=== PATIENT | female | born 1980 | race Caucasian/White ===

== ENCOUNTER 2017-01-28 05:07 | Day surgery (SDC) | payer OTHER ==
[2017-01-24 15:37] VITALS: BMI 35.7
[~2017-01-28 05:07] MED LIST: ceFAZolin SODIUM 1 GM VIAL IVPB ONE
[2017-01-28] MEDS ORDERED: SUCCINYLCHOLINE CHLORIDE 200 MG/10 ML VIAL ONE (07:14)
[2017-01-28] MEDS ORDERED: ROCURONIUM BROMIDE 50 MG/5 ML VIAL ONE (07:14)
[2017-01-28] MEDS ORDERED: PROPOFOL 20 ML ONE ×3 (07:14→08:54)
[2017-01-28] MEDS ORDERED: DEXAMETHASONE SOD PHOSPHATE 4 MG/1 ML VIAL ONE (07:16)
[2017-01-28] MEDS ORDERED: MIDAZOLAM HCL 2 MG/2 ML SINGLE DOSE VIAL ONE ×3 (07:16→07:17)
[2017-01-28] MEDS ORDERED: LIDOCAINE HCL/PF 2% SDV 5ML VIAL ONE (07:16)
[2017-01-28] MEDS ORDERED: EPINEPHrine/PF 1 MG/1 ML (1:1,000) AMPULE ONE (07:17)
[2017-01-28] MEDS ORDERED: GLYCOPYRROLATE 0.2 MG/1 ML VIAL ONE (08:52)
[2017-01-28] MEDS ORDERED: DESFLURANE GAS 240 ML BOTTLE IH ONE (08:53)
[2017-01-28] MEDS ORDERED: NEOSTIGMINE METHYLSULFATE 0.5 MG/ML - 10 ML MDV ONE (08:56)
--- NOTE | 2017-01-28 09:29 | OP ---
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 Post-Operative Diagnosis: Same as Pre-op Surgeon: Jose Fang Anesthesiologist/POT WASHER: Chema Morales Anesthesia: General Specimens Removed: RLL tumor (endobronchial) Estimated Blood Loss (mls): 10 Operative Report Dictated: Yes
[2017-01-28] MEDS ORDERED: ACETAMINOPHEN INJECTION 100 ML IVPB ONE (09:37)
[2017-01-28] MEDS ORDERED: ONDANSETRON 4 MG/2 ML VIAL IVPUSH PRN (09:39)
[2017-01-28] MEDS ORDERED: ACETAMINOPHEN 1000 MG/100 ML VIAL (NON FORMULARY) IVPB PRN (09:39)
[2017-01-28] MEDS ORDERED: PROMETHAZINE HCL 25 MG/1 ML VIAL IVPUSH PRN (09:39)
[2017-01-28] MEDS ORDERED: oxyCODONE HCL 5 MG TABLET PO PRN (09:39)
[2017-01-28] MEDS ORDERED: LACTATED RINGERS SOLUTION 1,000 ML IV SCH (09:45)
[2017-01-28] MEDS ORDERED: IBUPROFEN 800 MG/8 ML IJ IVPB ONE (09:52)
[2017-01-28 10:22] VITALS: TEMP 98.6
[2017-01-28 13:19] VITALS: BP 135/87; PULSE 83
--- NOTE | 2017-01-28 18:24 | OP ---
- Note: Patient Name: Ignacia Mercedes MR#: [id number] Procedure Date: 01/28/2017 Preoperative Diagnosis: Endobronchial tumor Postoperative Diagnosis: Same Procedure: 1. Bronchoscopy; 2. Bronchial biopsy. Indication: Pneumonia; lung tumor. Surgeon(s): Jose Fang MD Cosurgeon: [employer] Assistant Principal Surgeon: mark Anesthesia: General endotracheal; Findings: tumor at takeoff of right lower lobe; close to middle lobe; frozen non -diagnositc; not occluding right main bronchus intermedius. Specimens Sent: 1. Right lower lobe biopsies. Complications: none Drains / Tubes / Catheters: na Hardware / Implants: na Blood / Fluid Losses: minimal Post-Operative Condition: Hemodynamically stable to PACU. Indications: This patient is a 36 year-old female with a history of 2 right- sided pneumonias and a persistent infiltrate. She was referred from Dr. Munguia for biopsy. We explained the risks, benefits, and alternatives of the procedure and the patient agreed and understood. Details of Procedure: The patient was taken into the operating room and placed supine on the table. She was monitored with pulse oximetry and blood pressure monitoring. She was given sedation and intubated. A bronchoscopy was performed. We saw tumor at the right lower lobe takeoff and biopsied it several times. We sent it to frozen section. The airway was flushed with cold saline and epinephrine and there was no significant bleeding. The patient was then awakened and extubated. She tolerated the procedure well.
--- NOTE | 2017-01-29 16:57 | PATH ---
Cytology Non-Gynecological Report Patient Name: ALYSE THOMAS Med. Rec. #: [id number] /Age/Gender: 1980 (Age: 36) / F Account: [id number] Location: [facility] SURGICAL Taken: 01/28/2017 Received: 01/28/2017 Reported: 01/29/2017 Physicians: Jose Fang M.D. Specimen(s) Received RIGHT LOWER LOBE BRONCHIAL WASHINGS Clinical History None given Final Diagnosis LUNG, RIGHT LOWER LOBE, BRONCHIAL WASHING: SATISFACTORY FOR EVALUATION. BENIGN (NO MALIGNANT CELLS IDENTIFIED). BENIGN RESPIRATORY EPITHELIAL CELLS AND ALVEOLAR MACROPHAGES PRESENT. Comment: Also see [id number]. Electronically Signed Kostas Hollingsworth M.D. Gross Description Approximately 50 cc of bloody fluid received fixed in 50% alcohol. One cytofunnel and one cellblock prepared.
--- NOTE | 2017-01-29 17:00 | PATH ---
Surgical Pathology Report Patient Name: ALYSE THOMAS Med. Rec. #: [id number] /Age/Gender: 1980 (Age: 36) / F Account: [id number] Location: [facility] SURGICAL Taken: 01/28/2017 Received: 01/28/2017 Reported: 01/29/2017 Physicians: Jose Fang M.D. Specimen(s) Received A: RIGHT LOWER LOBE LUNG BIOPSY B: RIGHT LOWER LOBE ENDOBRONCHIAL LUNG BIOPSY Clinical History Right lower lobe tumor Intraoperative Consult Diagnosis Right lower lobe biopsy, touch prep: Lesional material present. Conner Hollingsworth M.D., January 28, 2017 Final Diagnosis A. 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 B. 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 Comment: Sections reveal a proliferation of neoplastic cells beneath the benign surface epithelium. There is a low mitotic rate (less than 2 mitoses per 10 high power herbert) and no areas of necrosis are identified. Immunohistochemical stains performed and interpreted at [facility] show the following results: The neoplastic cells stain with AE1/3, CK7, synaptophysin, and chromogranin. The neoplastic cells do not stain with CK20 or TTF-1. The histologic and immunophenotypic findings are consistent with carcinoid tumor (WHO classification). This case was discussed with Dr. Fang on January 29, 2017. Electronically Signed Kostas Hollingsworth M.D. Gross Description A. Received fresh for intraoperative consultation labeled "right lower lobe biopsy" is a 0.3 cm greatest dimension piece of wright tissue. Touch preps are prepared. The specimen is totally submitted in one cassette. B. Received in formalin, labeled "right lower lobe endobronchial lung biopsy" is a wright, irregular portion of soft tissue measuring 0.6 cm. in greatest dimension. The specimen is submitted in toto in one cassette. [facility]/01/28/2017 [facility]/01/28/2017
== END 2017-01-28 13:19 | disposition home or self-care (01) ==
LOC: JASU-SURG 05:07
PROVIDERS: ATTEND Surgery
PROC: 0BBF8ZX Excision of Right Lower Lung Lobe, Via Natural or Artificial Opening Endoscopic, Diagnostic (ICD-10-PCS; 2017-01-28)
PROC: 0BBF8ZX Excision of Right Lower Lung Lobe, Via Natural or Artificial Opening Endoscopic, Diagnostic (ICD-10-PCS; principal; 2017-01-28 07:30)
DX: D38.1 Neoplasm of uncertain behavior of trachea, bronchus and lung (principal)
CPT/HCPCS: 71010-TC; 84703; 86850; 86900; 86901; 87070; 87102; 87116; 87205; 87206; 87210; 88108; 88305-TC; 88333; 88341-TC; 88342-TC; 94760

== ENCOUNTER 2018-04-07 17:10 | Inpatient (IN) | payer OTHER ==
[~2018-04-07 17:10] MED LIST changes: +DINOPROSTONE 10 MG VAGINAL SUPPOSITORY VG ONE; -ceFAZolin SODIUM 1 GM VIAL IVPB ONE
[2018-04-07 18:15] VITALS: BMI 38.2
[2018-04-07] MEDS ORDERED: TUBERCULIN PPD 5 TU/0.1ML SYRINGE (IN PATIENT USE ONLY) ID ONE (18:15)
[2018-04-07 19:01] LABS: BASO % 0.3 % (0-2.0); EOS % 1.4 % (0-4.5); HEMATOCRIT 30.6 % (32.4-45.2); HEMOGLOBIN 10.2 GM/dL (10.7-15.3); LYMPH % 14.6 % (8-40); MCH 26.5 pg (25.7-33.7); MCHC 33.5 g/dl (32.0-36.0); MEAN PLT VOLUME 6.8 fl (7.5-11.1); NEUT % 76.7 % (42.8-82.8); PLATELET COUNT 292 K/MM3 (134-434); RBC 3.87 M/mm3 (3.60-5.2); WHITE BLOOD COUNT 7.5 K/mm3 (4.0-10.0)
[2018-04-07 19:12] LABS: INR 1.04 (0.82-1.09); PROTHROMBIN TIME (PATIENT) 11.7 SEC (9.7-13.0)
[2018-04-07 19:14] LABS: ACTIVATED PTT 25.1 SECONDS (25.2-36.5)
[2018-04-07 19:23] LABS: ANION GAP 10 (8-16); BLOOD UREA NITROGEN 12 mg/dL (7-18); CALCIUM 8.4 mg/dL (8.5-10.1); CHLORIDE 109 mmol/L (98-107); CO2 23 mmol/L (21-32); CREATININE 0.5 mg/dL (0.55-1.02); GLUCOSE,RANDOM 72 mg/dL (74-106); POTASSIUM 3.8 mmol/L (3.5-5.1); SODIUM 142 mmol/L (136-145)
--- NOTE | 2018-04-07 23:00 | HP ---
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: Alzheimer's, CVA, Dementia, Migraine, Multiple Sclerosis, Peripheral Neuropathy, Parkinson's, Seizure, Syncope, TIA, Vertigo, Other Cardiovascular: No: AFIB, Aneurysm, Aortic Insufficiency, Aortic Stenosis, CAD, CHF, Deep Vein Thrombosis, HTN, Hyperlipdemia, PR, Mitral Insufficiency, Mitral Stenosis, Murmur, Pulmonary Hypertension, Other Pulmonary: Yes: Other (Lobectomy Rt lung for benign tumor) Gastrointestinal: No: Ascites, Cancer, Constipation, Crohn's Disease, Diverticulitis, Diverticulosis, Esophageal Varices, Gastritis, GERD, GI Bleed, Hemorrhoids, Hiatal Hernia, Inflamatory Bowel Disease, Irritable Bowel Disease, Pancreatitis, Peptic Ulcer Disease, Ulcerative Colitis, Other Hepatobiliary: No: Cirrhosis, Cholelithiasis, Cholecystitis, Choledocholithiasis , Hepatitis A, Hepatitis B, Hepatitis C, Other Renal/: No: Renal Failure, Renal Inusuff, BPH, Cancer, Hematuria, Hemodialysis , Neurogenic Bladder, Renal Calculi, UTI, Other Reproductive: No: Ectopic , Endometriosis, Fibroids, PID, Polycystic Ovary Syndrome, Postmenopausal, Other ...: 2 ...Para: 0 ...Term: 0 ...: 0 ...Spon : 1 ...Induced : 0 ...Multiple Gestation: 0 ...LMP: 06/10/17 ... Weeks Gestation by Dates: 40.2 ...EDC by Dates: 03/17/17 ...EDC by Sono: 04/05/18 Heme/Onc: Yes: Anemia Infectious Disease: No: AIDS, C-Diff, Herpes Zoster, HIV, MRSA, STD's, Tuberculosis, VREF, Other Psych: No: Addictions, Anxiety, Bipolar, Depression, Panic, Psychosis, Schizophrenia, Other Musculoskeletal: No: Bursitis, Chronic low back pain, Hemiparesis, Hemiplegia, Osteoarthritis, Paraplegia, Other Rheumatology: No: Fibromyalgia, Gout, Lupus, Rheumatoid Arthritis, Sarcoidosis, Vasculitis, Other ENT: No: Allergic Rhinitis, Sinusitis, Other Endocrine: No: Roscoe's Disease, Ana's Disease, Diabetes Insipidus, Diabetes Mellitus, Hyperparathyroidism, Hyperthyroidism, Hypothyroidism, Osteopenia, SIADH, Other Dermatology: No: Basal Cell, Cellulitis, Eczema, Melanoma, Psoriasis, Squamous Cell, Other - Past Surgical History Hx Myomectomy: No Hx Transabdominal Cerclage: No Additional Surgical History: Rt lung lobectomy= benign 04/10/2018 - Smoking History Smoking history: Never smoked Have you smoked in the past 12 months: No Aproximately how many cigarettes per day: 0 - Alcohol/Substance Use Hx Alcohol Use: No History of Substance Use: reports: None - Social History Usual Living Arrangement: Yes: With Spouse ADL: Independent History of Recent Travel: No Home Medications - Allergies Allergies/Adverse Reactions: Allergies Allergy/AdvReac Type Severity Reaction Status Date / Time No Known Allergies Allergy Verified 04/07/18 17:56 - Home Medications Home Medications: Ambulatory Orders Insulin Detemir [Levemir Flextouch] 140 units SQ HS 04/07/18 Vitamins (Sjr) - 1 tab PO DAILY 04/07/18 Family Disease History - Family Disease History Family Disease History: CA: Father (bladder ca), Mother (ovarian ca) Review of Systems - Review of Systems Constitutional: reports: No Symptoms Eyes: reports: No Symptoms HENT: reports: No Symptoms Neck: reports: No Symptoms Cardiovascular: reports: No Symptoms Respiratory: reports: No Symptoms Gastrointestinal: reports: No Symptoms Genitourinary: reports: No Symptoms Breasts: reports: No Symptoms Reported Musculoskeletal: reports: No Symptoms Integumentary: reports: No Symptoms Neurological: reports: No Symptoms Endocrine: reports: No Symptoms Hematology/Lymphatic: reports: No Symptoms Psychiatric: reports: No Symptoms Pain Intensity: 0 Physical Exam - Maternity Vital Signs: Vital Signs Temperature 99.0 F 04/07/18 17:10 Pulse Rate 87 04/07/18 17:10 Respiratory Rate 19 04/07/18 17:10 Blood Pressure 134/79 04/07/18 17:10 O2 Sat by Pulse Oximetry (%) Constitutional: Yes: No Distress, Calm, Obese Eyes: Yes: WNL, Conjunctiva Clear, EOM Intact HENT: Yes: WNL, Atraumatic, Normocephalic Neck: Yes: WNL, Supple, Trachea Midline Cardiovascular: Yes: WNL, Regular Rate and Rhythm Lungs: Clear to auscultation, Normal air movement Breast(s): Yes: WNL - Abdominal Exam/OB Fundal Height: 42 Number of Fetuses: Single Presentation: Vertex Contractions: No Regularity: Irregular Intensity: Unaware Monitor Mode: External Heart Rate (range): 140 Heart Rate Location: Midline Category: I Accelerations: Uniform Decelerations: None - Vaginal Exam/OB Vaginal Bleediing: No Speculum Exam: No Dilatation (cm): 0 Effacement (%): 0 Amniotic Membrane Status: Intact Presentation: Vertex/Position Station: -4 - Physical Exam Musculoskeletal: Yes: WNL Extremities: Yes: WNL Edema: Yes Edema: LLE: Trace, RLE: Trace Integumentary: Yes: WNL Deep Tendon Reflex Grade: Normal +2 ...Motor Strength: WNL Psychiatric: Yes: WNL, Alert, Oriented - Labs Lab Results: CBC, BMP 04/07/18 18:30 04/07/18 18:30 Hemorrhage Risk Assessment - Risk Factors Medium Risk Factors: Yes: None High Risk Factors: Yes: None Risk Score: 1 Risk Level: Medium Risk Imaging - Results Ultrasound: Report Reviewed Assessment/Plan 37yo P0 with at EGA 40w2d with GDM Class A2 admitted for labor induction. Pt is not in labor. Fetus with Category I tracing. Adequate gynecoid pelvimetry on exam. We had long discussion re: risks, benefits, and alternatives of labor induction. I explained the options of expectant management awaiting spontaneous labor, induction of labor, and elective section. The risks of uterine tachysystole, distress, uterine rupture, need for emergency C/S, hemorrhage, infection, scarring, etc. were discussed. We also discussed the risks of meconium aspiration, shoulder dystocia , and anesthesia options. The pt refused a C/S. The pt requested to proceed with induction of labor. We discussed the alternative methods of induction with Cervidil, Cytotec, Folley ballon, and pitocin. The pt prefers Cervidil followed by pitocin, if needed.
[2018-04-08] MEDS: LACTATED RINGERS SOLUTION 1,000 ML/1,000 ML INFUS.BAG IV SCH (09:30)
[2018-04-08] MEDS ORDERED: OXYTOCIN 30 UNITS in 0.9% NS 30 UNIT/500 ML INFUS.BAG IVPB ONE (09:34)
--- NOTE | 2018-04-08 10:01 | PN ---
Ante-Partal Exam - Subjective Subjective: No complaints. No contractions Vital Signs: Vital Signs Temperature 98.4 F 04/08/18 07:00 Pulse Rate 68 04/08/18 07:00 Respiratory Rate 20 04/08/18 07:00 Blood Pressure 123/66 04/08/18 07:00 O2 Sat by Pulse Oximetry (%) Bleeding: No Headache: No Visual changes: No Right upper quadrant pain: No Pain (scale 1-10): 1 - Contractions Contractions: Yes Regularity: Irritability Intensity: Mild Monitor Mode: External - Exam during Labor Heart Rate: 150 Variability: Moderate Heart Rate Location: Midline Category: I Monitor Accelerations: Present Monitor Decelerations: None Exam: Vaginal Dilatation (cm): 0 Effacement (%): 20 Amniotic Membrane Status: Intact Presentation: Vertex Station: -4 Remarks: Head is unengaged - Intrapartum Hemorrhage Risk Medium Risk Factors: None High Risk Factors: None Risk Score: 0 Risk Level: Low Risk - Assessment/Plan Assessment/Plan: 37yo P0 with at EGA 40w3d admitted for labor induction due to sub- optimally controlled GDM A2, AMA, obesity, post term . Pt is not in labor. Fetus with Category I tracing. The pt requested to continue induction. Pitocin was discussed and started. FSG was 113 fasting. Plan to titrate pitocin and monitor FSG levels. Pt does not need insulin drip.
[2018-04-08] MEDS ORDERED: OXYTOCIN 30 UNITS in 0.9% NS 30 UNIT/500 ML INFUS.BAG IVPB SCH (11:00)
[2018-04-08] MEDS ORDERED: BUTORPHANOL TARTRATE 1 MG/ML VIAL IVPB ONE (17:00)
[2018-04-08] MEDS ORDERED: PROMETHAZINE HCL 25 MG/1 ML VIAL IVPB ONE (17:00)
[2018-04-08] MEDS ORDERED: FENTANYL/BUPIVACAINE/NS/PF - PCEA - 50 ML DISP.SYRIN EP ONE (19:29)
--- NOTE | 2018-04-08 19:54 | PN ---
Ante-Partal Exam - Subjective Subjective: Pt is c/o painful ctx's. SROM prior to exam Vital Signs: Vital Signs Temperature 98.7 F 04/08/18 18:00 Pulse Rate 62 04/08/18 19:00 Respiratory Rate 20 04/08/18 19:00 Blood Pressure 127/70 04/08/18 19:00 O2 Sat by Pulse Oximetry (%) Bleeding: No Headache: No Visual changes: No Right upper quadrant pain: No Pain (scale 1-10): 7 - Contractions Contractions: Yes Regularity: Regular Intensity: Mod/Strong (q3min) Monitor Mode: External - Exam during Labor Heart Rate: 140 Variability: Moderate Heart Rate Location: Midline Category: I Monitor Accelerations: Present Monitor Decelerations: Early Exam: Vaginal Dilatation (cm): 4 Effacement (%): 80 Amniotic Membrane Status: Ruptured Amniotic Fluid: Meconium Stained Meconium Staining: Light Presentation: Vertex Station: -4 Remarks: Adequate pelvimetry - Intrapartum Hemorrhage Risk Medium Risk Factors: None High Risk Factors: None Risk Score: 0 Risk Level: Low Risk - Assessment/Plan Assessment/Plan: 37yo P0 with at EGA 40w3d undergoing labor indx. Fetus with category I tracing. Labor progressed in latent phase. Plan to monitor labor progress. Continue the pitocin. Pt requested epidural. Anesthesia consult called.
[2018-04-08] MEDS: FENTANYL/BUPIVACAINE/NS/PF - PCEA - 50 ML DISP.SYRIN EP SCH (20:10)
[2018-04-08] MEDS ORDERED: NALOXONE HCL 0.4 MG/ML VIAL IVPUSH PRN (21:08)
--- NOTE | 2018-04-08 22:03 | PN ---
Ante-Partal Exam - Subjective Subjective: No complaints Vital Signs: Vital Signs Temperature 98.6 F 04/08/18 21:00 Pulse Rate 66 04/08/18 20:45 Respiratory Rate 18 04/08/18 20:45 Blood Pressure 123/70 04/08/18 20:45 O2 Sat by Pulse Oximetry (%) 97 04/08/18 20:45 Bleeding: No Headache: No Visual changes: No Right upper quadrant pain: No Pain (scale 1-10): 0 - Contractions Contractions: Yes Regularity: Regular Intensity: Moderate Monitor Mode: External - Exam during Labor Heart Rate: 140 Variability: Moderate Heart Rate Location: Midline Category: I Monitor Accelerations: Present Monitor Decelerations: None Exam: Vaginal Dilatation (cm): 5 Effacement (%): 90 Amniotic Membrane Status: Leaking Meconium Staining: Light Presentation: Vertex Station: -4 Remarks: Adequate pelvimetry - Intrapartum Hemorrhage Risk Medium Risk Factors: None High Risk Factors: None Risk Score: 0 Risk Level: Low Risk - Assessment/Plan Assessment/Plan: 37yo P0 with labor progressing in active phase. Fetus with Category I tracing. We discussed the GDM and possible risks of delivery, including shoulder dystocia. Pt declined elective C/S.
[2018-04-09] MEDS ORDERED: FENTANYL/BUPIVACAINE/NS/PF - PCEA - 50 ML DISP.SYRIN EP ONE (00:04)
[2018-04-09] MEDS: LACTATED RINGERS SOLUTION 1,000 ML/1,000 ML INFUS.BAG IV SCH (00:30)
[2018-04-09] MEDS ORDERED: BUPIVACAINE HCL/PF 0.25% (2.5MG/ML) 10 ML VIAL ONE (01:03)
[2018-04-09] MEDS ORDERED: LIDO 2%/EPI 1:200000 PRESRVFRE (20 ML SDVIAL) ONE (01:20)
[2018-04-09] MEDS ORDERED: OXYTOCIN 20 UNITS in 0.9% NS 20 UNIT/1,000 ML INFUS.BAG IV ONE (01:55)
--- NOTE | 2018-04-09 03:00 | PN ---
Ante-Partal Exam - Subjective Subjective: Pt has no complaints. She does not feel ant contractions. Variable decels are noted. Hard to slate picker FHT on lateral position. Vital Signs: Vital Signs Temperature 97.6 F 04/09/18 02:00 Pulse Rate 100 H 04/09/18 02:00 Respiratory Rate 20 04/09/18 02:00 Blood Pressure 129/67 04/09/18 02:00 O2 Sat by Pulse Oximetry (%) 100 04/09/18 02:00 Bleeding: No Headache: No Visual changes: No Right upper quadrant pain: No Pain (scale 1-10): 0 - Contractions Contractions: Yes Regularity: Regular Intensity: Moderate Monitor Mode: External - Exam during Labor Heart Rate: 150 Variability: Moderate Heart Rate Location: Midline Category: II Monitor Accelerations: Present Monitor Decelerations: Variable (occasional rare) Exam: Vaginal Dilatation (cm): 10 Effacement (%): 100 Amniotic Membrane Status: Leaking Amniotic Fluid: Clear Presentation: Vertex Station: 0 Remarks: FSE applied - Intrapartum Hemorrhage Risk Medium Risk Factors: None High Risk Factors: None Risk Score: 0 Risk Level: Low Risk - Assessment/Plan Assessment/Plan: Pt progressed to 10cm. However, she cannot feel any pressure or contractions. Plan to allow for passive descent. Plan to decrease epidural rate and start pushing when patient is able to bear down.
[2018-04-09] MEDS ORDERED: IBUPROFEN 600 MG TABLET (FP) PO PRN (04:26)
[2018-04-09] MEDS ORDERED: BISACODYL 10 MG SUPP.RECT RC PRN (04:26)
[2018-04-09] MEDS ORDERED: METHYLERGONOVINE MALEATE 0.2 MG/1 ML AMP IM PRN (04:26)
[2018-04-09] MEDS ORDERED: WITCH HAZEL 50% (TUCKS) 40 PAD/JAR PAD TP PRN (04:26)
[2018-04-09] MEDS ORDERED: BENZOCAINE 20% 57 GM BOTTLE TP PRN (04:26)
[2018-04-09] MEDS ORDERED: ACETAMINOPHEN 325 MG TABLET (FP) PO PRN (04:26)
[2018-04-09] MEDS ORDERED: BENZOCAINE 28 GM HEMORRHOIDAL OINTMENT TP PRN (04:26)
[2018-04-09] MEDS ORDERED: OXYTOCIN 20 UNITS in 0.9% NS 20 UNIT/1,000 ML INFUS.BAG IV SCH (04:30)
[2018-04-09 04:32] LABS: ARTERIAL BLD GAS O2 SATURATION 13.6 % (90-98.9); ARTERIAL BLOOD GAS BASE EXCESS -4.7 meq/l (-2-2)
[2018-04-09 04:37] LABS: ARTERIAL BLOOD GAS PCO2 64.6 mmHg (35-45); ARTERIAL BLOOD GAS pH 7.2 (7.35-7.45)
[2018-04-09 04:38] LABS: ARTERIAL BLOOD GAS PO2 13.1 mmHg (80-100)
[2018-04-09 04:39] LABS: VENOUS PH 7.37 (7.32-7.42)
[2018-04-09 04:40] LABS: VENOUS PC02 36.9 mmHg (38-52); VENOUS PO2 35.4 mmHg (28-48)
[2018-04-09] MEDS: PRENATAL VITAMINS W/ FOLIC ACID TABLET (FP) PO SCH (10:17)
[2018-04-09] MEDS: FENTANYL/BUPIVACAINE/NS/PF - PCEA - 50 ML DISP.SYRIN EP SCH (23:31)
--- NOTE | 2018-04-10 00:49 | PN ---
Post Progress Note - Subjective Subjective: Patient without acute complaints. Reports tolerating oral intake without nausea or vomiting. Ambulating without dizziness. Denies fevers or chills. Pain well controlled with oral pain medication. without difficulty. Passing flatus. Post Day: 1 Type of Delivery: Vital Signs: Vital Signs Temperature 97.8 F 04/09/18 22:00 Pulse Rate 84 04/09/18 22:00 Respiratory Rate 20 04/09/18 22:00 Blood Pressure 133/77 04/09/18 22:00 O2 Sat by Pulse Oximetry (%) 99 04/09/18 05:45 Breast Exam: Yes: Engorged Uterus: Yes: Fundus Firm Abdomen/GI: Yes: Abdomen soft, Passing flatus, Tolerating PO. No: Abdominal Distention, Tender Lochia: Yes: Serosa Lochia, amount: Small Extremities: Yes: Calves non-tender. No: Edema Activity: Ambulating - Labs Labs: CBC WBC 7.5 K/mm3 (4.0-10.0) 04/07/18 18:30 RBC 3.87 M/mm3 (3.60-5.2) 04/07/18 18:30 Hgb 10.2 GM/dL (10.7-15.3) L 04/07/18 18:30 Hct 30.6 % (32.4-45.2) L D 04/07/18 18:30 MCV 79.0 fl (80-96) L 04/07/18 18:30 MCH 26.5 pg (25.7-33.7) 04/07/18 18:30 MCHC 33.5 g/dl (32.0-36.0) 04/07/18 18:30 RDW 16.0 % (11.6-15.6) H 04/07/18 18:30 Plt Count 292 K/MM3 (134-434) 04/07/18 18:30 MPV 6.8 fl (7.5-11.1) L D 04/07/18 18:30 Absolute Neuts (auto) 5.8 # 04/07/18 18:30 Neutrophils % 76.7 % (42.8-82.8) 04/07/18 18:30 Lymphocytes % 14.6 % (8-40) D 07/09/18 18:30 Monocytes % 7.0 % (3.8-10.2) 04/07/18 18:30 Eosinophils % 1.4 % (0-4.5) D 04/07/18 18:30 Basophils % 0.3 % (0-2.0) 04/07/18 18:30 Nucleated RBC % 0 % (0-0) 04/07/18 18:30 Assessment/Plan 37 yo PPD # 1 s/p , afebrile, vital signs stable, doing well 1. Continue routine care. 2. AM CBC anemia noted; currently asymptomatic. Will start ferrous sulfate 3. Rh negative status, will give rhogam as indicated. 4. Encourage ambulation 5. Continue oral pain medication 6. Anticipate discharge home day #2
[2018-04-10 07:22] LABS: BASO % 0.3 % (0-2.0); EOS % 1.3 % (0-4.5); HEMATOCRIT 25.7 % (32.4-45.2); HEMOGLOBIN 8.6 GM/dL (10.7-15.3); LYMPH % 18.5 % (8-40); MCH 26.5 pg (25.7-33.7); MCHC 33.5 g/dl (32.0-36.0); MEAN CELL VOLUME 79.2 fl (80-96); MEAN PLT VOLUME 6.9 fl (7.5-11.1); MONO % 5.6 % (3.8-10.2); NEUT % 74.3 % (42.8-82.8); PLATELET COUNT 222 K/MM3 (134-434); RBC 3.25 M/mm3 (3.60-5.2); RDW 15.8 % (11.6-15.6); WHITE BLOOD COUNT 9.7 K/mm3 (4.0-10.0)
[2018-04-10] MEDS: PRENATAL VITAMINS W/ FOLIC ACID TABLET (FP) PO SCH (09:28)
[2018-04-10] MEDS ORDERED: DIPHTH,PERTUSS(ACELL),TET 0.5 ML DISP.SYRIN IM ONE (10:00)
[2018-04-10] MEDS ORDERED: SENNOSIDES/DOCUSATE COMBO (SENNA PLUS) TABLET (UD) PO PRN (22:00)
--- NOTE | 2018-04-11 07:38 | DS ---
Physical Exam-SPARE PERSON Vital Signs: Vital Signs Temperature 98.0 F 04/10/18 20:46 Pulse Rate 78 04/10/18 20:46 Respiratory Rate 20 04/10/18 20:46 Blood Pressure 134/80 04/10/18 20:46 O2 Sat by Pulse Oximetry (%) 99 04/09/18 05:45 Constitutional: Yes: Well Nourished, No Distress, Calm Eyes: Yes: WNL, Conjunctiva Clear, EOM Intact HENT: Yes: WNL, Atraumatic, Normocephalic Neck: Yes: WNL, Supple, Trachea Midline Cardiovascular: Yes: WNL, Regular Rate and Rhythm Respiratory: Yes: WNL, Regular, CTA Bilaterally Gastrointestinal: Yes: WNL ...Rectal Exam: Yes: WNL Renal/: Yes: WNL ....Post : Yes: Uterus firm, Uterus non-tender, Slight lochia rubra Breast(s): Yes: WNL Musculoskeletal: Yes: WNL Extremities: Yes: WNL Edema: No Integumentary: Yes: WNL Neurological: Yes: WNL, Alert, Oriented ...Motor Strength: WNL Psychiatric: Yes: WNL, Alert, Oriented Labs: CBC, BMP 04/10/18 06:30 04/07/18 18:30 Delivery - Delivery Vaginal Delivery: Spontaneous Type of Anesthesia: Local, Epidural Episiotomy/Laceration: 1st degree EBL (cc): 300 Delivery, Single - Stages of Labor Date 1st Stage Initiatied: 04/08/18 Time 1st Stage Initiated: 17:00 Date 2nd Stage Initiated: 04/09/18 Time 2nd Stage Initiated: 03:30 Date of Delivery: 04/09/18 Time of Delivery: 04:05 Time Placenta Delivered: 04:08 Placenta: Yes: Spontaneous - Condition of Infant Conveyor Technician/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 Operator Present: No Infant Gender: Male Weight: 7 lb 14 oz Position: Right, OA Total Hours ROM (Hrs/Mins): 8 hours 53 minutes - 1 Minute Total Score: 9 5 Minutes Total Score: 9 - Feeding Plan Initial Plan: Exclusive throughout hospitalization Discharge Summary Reason For Visit: ADMIT INDUCTION OF LABOR INDDM Procedures: Principal: Hospital Course: no complication Condition: Good - Instructions Diet, Activity, Other Instructions: , low carb diet, no intercourse , follow up office 4 weeks Referrals: Manan Clements MD [Staff Physician] - Disposition: HOME - Home Medications Comprehensive Discharge Medication List: Ambulatory Orders Insulin Detemir [Levemir Flextouch] 140 units SQ HS 04/07/18 Vitamins (Sjr) - 1 tab PO DAILY 04/07/18 Ibuprofen [Motrin -] 600 mg PO TID #21 tablet 04/11/18
[2018-04-11] MEDS: PRENATAL VITAMINS W/ FOLIC ACID TABLET (FP) PO SCH (09:39)
[2018-04-11 10:04] VITALS: BP 136/77; PULSE 63; TEMP 97.9
== END 2018-04-11 12:45 | disposition home or self-care (01) | DRG 775 ==
LOC: JLDR 17:10 → J3W 04-09 06:02
PROVIDERS: ADMIT Obstetrics & Gynecology; ATTEND Obstetrics & Gynecology
PROC: 10E0XZZ Delivery of Products of Conception, External Approach (ICD-10-PCS; principal; 2018-04-08)
PROC: 0HQ9XZZ Repair Perineum Skin, External Approach (ICD-10-PCS; 2018-04-08)
DX: O48.0 Post-term pregnancy (principal); O99.214 Obesity complicating childbirth; E66.01 Morbid (severe) obesity due to excess calories; O24.414 Gestational diabetes mellitus in pregnancy, insulin controlled; O76 Abnormality in fetal heart rate and rhythm complicating labor and delivery; Z68.38 Body mass index [BMI] 38.0-38.9, adult; Z79.4 Long term (current) use of insulin; Z3A.40 40 weeks gestation of pregnancy; Z37.0 Single live birth; O99.02 Anemia complicating childbirth; D64.9 Anemia, unspecified; O70.0 First degree perineal laceration during delivery
CPT/HCPCS: 36415; 36600; 59409; 80048; 82803; 82962; 85025; 85461; 85610; 85730; 86593; 86850; 86900; 86901; 86999; 87389

== ENCOUNTER 2019-03-15 05:39 | Emergency (ER) | payer OTHER | END 2019-03-15 09:53 | disposition home or self-care (01) | LOC: JER 05:39 ==

== ENCOUNTER 2019-06-11 22:42 | Emergency (ER) | payer OTHER ==
[2019-06-11 22:56] VITALS: BMI 39.9
--- NOTE | 2019-06-11 23:04 | PDOC ---
History of Present Illness - General Chief Complaint: Pain Stated Complaint: ABD PAIN/NAUSEA Time Seen by Provider: 06/11/19 23:04 History Source: Patient Exam Limitations: No Limitations - History of Present Illness Initial Comments: 38 year old female with PMH fatty liver, cholelithiasis presented to ED for constant epigastric pain radiating to back since 2100 today. Pt reported she ate meat and a salad for dinner. Pt reported her pain is "exactly the same" as when she was seen prior for GB colic. Pt admitted to nausea, denied vomiting/ diarrhea/constipation. Pt reported her symptoms have been improving over the last hour. Past surgical history: -R lower lobectomy 2/ benign mass -Denied abdominal surgical history. Allergies: NKDA ROS General: denied fever, chills, generalized weakness. HEENT: denied sore throat, rhinorrhea, ear pain. Cardiovascular: denied chest pain, palpitations, syncope, diaphoresis. Respiratory: denied shortness of breath, cough, sputum production, hemoptysis. Gastrointestinal: admitted to abdominal pain, nausea. denied vomiting, diarrhea , constipation, blood in stool. Genitourinary: denied dysuria, increased urinary frequency, hematuria, urinary incontinence, flank pain. Back: admitted to back pain. Musculoskeletal: denied joint pain, muscle pain, joint swelling. Neurological: denied headache, dizziness, numbness, tingling, weakness. Integumentary: denied rash, laceration, abrasion. Hematologic/Lymphatic: denied bruising or bleeding. PE Constitutional: Well-nourished, Well-developed, appearing stated age. HEENT: head is normocephalic, atraumatic. EOMI. PERRLA. Neck: supple. Full ROM. Cardiovascular: regular heart rhythm. no murmurs. no pericardial friction rub. Respiratory: clear to auscultation bilaterally. no crackles, rhonchi or wheezing. no stridor. Gastrointestinal: soft, protuberant. no tenderness to palpation. murphys negative. normal bowel sounds. no rebound, guarding, masses. Back: negative CVA tenderness bilaterally. Extremities: peripheral pulses intact. no lower extremity edema. Neurological: CN 2-12 grossly intact. moves all four extremities. Psych: awake, alert, oriented x3. follows commands. answers questions appropriately. Past History - Past Medical History Allergies/Adverse Reactions: Allergies Allergy/AdvReac Type Severity Reaction Status Date / Time No Known Allergies Allergy Verified 03/15/19 06:14 Home Medications: Ambulatory Orders Ondansetron [Zofran Odt -] 4 mg SL TID #9 od.tablet 06/12/19 - Immunization History Immunization Up to Date: Yes - Suicide/Smoking/Psychosocial Hx Smoking Status: No Smoking History: Never smoked Have you smoked in the past 12 months: No Number of Cigarettes Smoked Daily: 0 Information on smoking cessation initiated: No Hx Alcohol Use: No Drug/Substance Use Hx: No Substance Use Type: Alcohol Hx Substance Use Treatment: No *Physical Exam - Vital Signs Last Vital Signs Temp Pulse Resp BP Pulse Ox 98.5 F 118 H 26 H 168/110 H 100 06/11/19 22:51 06/11/19 22:51 06/11/19 22:51 06/11/19 22:51 06/11/19 22:51 ED Treatment Course - LABORATORY CBC & Chemistry Diagram: 06/11/19 23:30 06/11/19 23:30 Medical Decision Making - Medical Decision Making 38 year old female with above PMH presented to ED for epigastric pain radiating to the back, associated with nausea. Initial Vital Signs Temp Pulse Resp BP Pulse Ox 98.5 F 118 H 26 H 168/110 H 100 06/11/19 22:51 06/11/19 22:51 06/11/19 22:51 06/11/19 22:51 06/11/19 22:51 Afebrile. Tachycardia. Tachypnea. Hypertensive. No hypoxia on room air. EKG performed at 2337: rate 94, regular rhythm, normal axis, normal intervals, no acute ST changes. Labs ordered: CBC, CMP, troponin, lipase, UA/UC, coags, T&S, serum testing Imaging ordered: RUQ US Medications ordered: tylenol IV once, normal saline bolus 1000 cc once 06/11/19 23:56 CBC WBC 12.1 K/mm3 (4.0-10.0) H 06/11/19 23:30 RBC 4.96 M/mm3 (3.60-5.2) 06/11/19 23:30 Hgb 13.8 GM/dL (10.7-15.3) 06/11/19 23:30 Hct 41.8 % (32.4-45.2) 06/11/19 23:30 MCV 84.4 fl (80-96) 06/11/19 23:30 MCH 27.8 pg (25.7-33.7) 06/11/19 23:30 MCHC 32.9 g/dl (32.0-36.0) 06/11/19 23:30 RDW 13.5 % (11.6-15.6) 06/11/19 23:30 Plt Count 300 K/MM3 (134-434) 06/11/19 23:30 MPV 6.9 fl (7.5-11.1) L 06/11/19 23:30 Absolute Neuts (auto) 9.8 K/mm3 (1.5-8.0) H 06/11/19 23:30 Neutrophils % 80.5 % (42.8-82.8) 06/11/19 23:30 Lymphocytes % 13.9 % (8-40) D 06/11/19 23:30 Monocytes % 4.3 % (3.8-10.2) 06/11/19 23:30 Eosinophils % 0.7 % (0-4.5) 06/11/19 23:30 Basophils % 0.6 % (0-2.0) 06/11/19 23:30 Nucleated RBC % 0 % (0-0) 06/11/19 23:30 Leukocytosis with left shift. No anemia. 06/12/19 00:21 CMP Sodium 140 mmol/L (136-145) 06/11/19 23:30 Potassium 4.1 mmol/L (3.5-5.1) 06/11/19 23:30 Chloride 104 mmol/L (98-107) 06/11/19 23:30 Carbon Dioxide 29 mmol/L (21-32) 06/11/19 23:30 Anion Gap 6 MMOL/L (8-16) L 06/11/19 23:30 BUN 16.5 mg/dL (7-18) 06/11/19 23:30 Creatinine 0.9 mg/dL (0.55-1.3) 06/11/19 23:30 Est GFR (CKD-EPI)AfAm 94.01 06/11/19 23:30 Est GFR (CKD-EPI)NonAf 81.11 06/11/19 23:30 Random Glucose 126 mg/dL (74-106) H 06/11/19 23:30 Calcium 9.6 mg/dL (8.5-10.1) 06/11/19 23:30 Magnesium 2.1 mg/dL (1.8-2.4) 06/11/19 23:30 Total Bilirubin 0.4 mg/dL (0.2-1) 06/11/19 23:30 AST 65 U/L (15-37) H 06/11/19 23:30 ALT 47 U/L (13-61) 06/11/19 23:30 Alkaline Phosphatase 96 U/L (45-117) 06/11/19 23:30 Troponin I < 0.02 ng/ml (0.00-0.05) 06/11/19 23:30 Total Protein 7.6 g/dl (6.4-8.2) 06/11/19 23:30 Albumin 4.0 g/dl (3.4-5.0) 06/11/19 23:30 Lipase 212 U/L (73-393) 06/11/19 23:30 Serum , Qual Negative 06/11/19 23:30 No electrolyte abnormalities. No MARIA LUISA. Mild AST elevation. Troponin undetectable. Lipase wnl. Serum negative. 06/12/19 01:18 Abdominal US report: Name: ALYSE THOMAS DEPARTMENT OF RADIOLOGY Phys: Wendie Martinez RESIDENT : 1980 Age: 38 Sex: F [facility] Acct: [id number] Loc: [address] Exam Date: 06/12/19 Status: [place] [address] Unit Number: [id number] EXAM#: TYPE/EXAM: RESULT: [id number] US/ABDOMEN US -LIMITED HISTORY PROVIDED: Epigastric pain. Real time examination of the abdomen demonstrates the following : The study is limited. The gallbladder is normal in size and does contain multiple calculi. There is no evidence of intra or extrahepatic biliary duct dilatation. The liver is enlarged measuring 18.2 cm in craniocaudad dimension. It is hyperechoic in texture consistent with diffuse fatty infiltration. No discrete intrahepatic masses are identified. Hepatopedal flow is documented within the main portal vein. The pancreas is normal in size and texture with no pancreatic masses identified. There is no evidence of hydronephrosis or acute abnormalities of the right kidney. There is no evidence of AAA. The IVC is patent. IMPRESSION: 1. Cholelithiasis. 2. Hepatomegaly with diffuse fatty infiltration of the liver. Reported By: Jerod Vieira MD 06/12/19 0802 Urine Test Results Urine Color Yellow 06/12/19 01:00 Urine Appearance Cloudy 06/12/19 01:00 Urine pH 8.5 (5.0-8.0) H D 06/12/19 01:00 Ur Specific [place] 1.024 (1.010-1.035) 06/12/19 01:00 Urine Protein Trace (NEGATIVE) 06/12/19 01:00 Urine Glucose (UA) Negative (NEGATIVE) 06/12/19 01:00 Urine Ketones Negative (NEGATIVE) 06/12/19 01:00 Urine Blood Trace (NEGATIVE) 06/12/19 01:00 Urine Nitrite Negative (NEGATIVE) 06/12/19 01:00 Urine Bilirubin Negative (NEGATIVE) 06/12/19 01:00 Ur Leukocyte Esterase Negative (NEGATIVE) 06/12/19 01:00 Negative for UTI. Pt informed of results, reported improvement of pain. Plan for care discussed with patient, pt agreed to outpatient F/U with GI/PCP/surgery. Will send Zofran PRN to pharmacy. Vital Signs Pulse Rate 77 06/12/19 01:32 Respiratory Rate 20 06/12/19 01:32 Blood Pressure 148/88 06/12/19 01:32 O2 Sat by Pulse Oximetry (%) 98 06/12/19 01:32 Tachycardia improved. HTN improved. *DC/Admit/Observation/Transfer Diagnosis at time of Disposition: Gallbladder colic, Fatty liver - Discharge Dispostion Disposition: HOME Condition at time of disposition: Improved Decision to Admit order: No - Prescriptions Prescriptions: Ondansetron [Zofran Odt -] 4 mg SL TID #9 od.tablet - Referrals Referrals: Jeff Wilde MD [Primary Care Provider] - Binh Duron MD [Staff Physician] - Brigitte Hardwick MD [Staff Physician] - - Patient Instructions Printed Discharge Instructions: DI for Gallstones, DI for Abdominal Pain-Adult , DI for Nonalcoholic Fatty Liver Disease Additional Instructions: Take ibuprofen over the counter for pain. Take as advised on label. Avoid eating all fatty foods, as this will make your gallbladder contract. Follow up with your primary care doctor within 3 days. Your care is not complete until you follow up. Follow up with your GI doctor within 3 days. Your care is not complete until you follow up. Follow up with your surgeon within 3 days. Your care is not complete until you follow up. Return to the Emergency Department for increasing pain, vomiting, blood in vomit , lightheadedness, chest pain, shortness of breath, fever or any other new, worsening or concerning symptoms. - Post Discharge Activity Forms/Work/School Notes: Back to Work
[2019-06-11] MEDS ORDERED: SODIUM CHLORIDE 1,000 ML IV STA (23:18)
[2019-06-11] MEDS ORDERED: ACETAMINOPHEN 1000 MG/100 ML VIAL (NON FORMULARY) IVPB ONE (23:18)
[2019-06-11] MEDS ORDERED: ACETAMINOPHEN INJECTION 100 ML IVPB ONE (23:42)
[2019-06-11 23:45] LABS: BASO % 0.6 % (0-2.0); EOS % 0.7 % (0-4.5); HEMATOCRIT 41.8 % (32.4-45.2); HEMOGLOBIN 13.8 GM/dL (10.7-15.3); LYMPH % 13.9 % (8-40); MCH 27.8 pg (25.7-33.7); MCHC 32.9 g/dl (32.0-36.0); MEAN CELL VOLUME 84.4 fl (80-96); MEAN PLT VOLUME 6.9 fl (7.5-11.1); MONO % 4.3 % (3.8-10.2); NEUT % 80.5 % (42.8-82.8); PLATELET COUNT 300 K/MM3 (134-434); RBC 4.96 M/mm3 (3.60-5.2); RDW 13.5 % (11.6-15.6); WHITE BLOOD COUNT 12.1 K/mm3 (4.0-10.0)
[2019-06-11 23:58] LABS: INR 1.05 (0.83-1.09); PROTHROMBIN TIME (PATIENT) 12.4 SEC (9.7-13.0)
--- NOTE | 2019-06-11 23:59 | PDOC ---
Documentation entered by Dilshad Hodge SCRIBE, acting as scribe for Alma Tirado DO. Alma Tirado, : This documentation has been prepared by the Ayesha aponte Xhesika, SCRIBE, under my direction and personally reviewed by me in its entirety. I confirm that the documentation accurately reflects all work, treatment, procedures, and medical decision making performed by me. Attending Attestation - Resident Resident Name: Wendie Martinez - ED Attending Attestation I have performed the following: I have examined & evaluated the patient, The case was reviewed & discussed with the resident, I agree w/resident's findings & plan, Exceptions are as noted - HPI HPI: 06/11/19 23:24 The patient is a 38 year old female with a significant PMH of fatty liver and cholelithiasis who presents to the emergency department for epigastric pain since 9pm. The patient describes the pain as severe, constant, associated with nausea, radiating to her back. Patient notes her symptoms are similar to her prior cholelithiasis. The patient denies chest pain, shortness of breath, headache and dizziness. Denies fever, chills, cough,vomiting, diarrhea and constipation. Denies dysuria , frequency, urgency and hematuria. Allergies: NKDA Past surgical history: R lung lobectomy PCP: Dr. Jeff Wilde - Physicial Exam PE: 06/11/19 23:44 GENERAL: Awake, alert, and fully oriented, in no acute distress. (+) Morbidly obese. NECK: Normal ROM, supple, no lymphadenopathy, JVD, or masses LUNGS: Breath sounds equal, clear to auscultation bilaterally. No wheezes, and no crackles HEART:(+) tachy. Normal S1 and S2, no murmurs, rubs or gallops ABDOMEN: Soft, nontender, normoactive bowel sounds. No guarding, no rebound. No masses. No CVA tenderness. Negative [place] Sign. EXTREMITIES: Normal range of motion, no edema. No clubbing or cyanosis. No cords, erythema, or tenderness NEUROLOGICAL: Cranial nerves II through XII grossly intact. Normal speech, normal gait SKIN: Warm, Dry, normal turgor, no rashes or lesions noted. - Medical Decision Making 06/11/19 23:57 I, Dr. Alma Tirado, DO, attest that this document has been prepared under my direction and personally reviewed by me in its entirety. I further attest, that it accurately reflects all work, treatment, procedures and medical decision -making performed by me. 06/11/19 23:57 a/p: 38yo female with known gallstones scheduled for elective althea for end jun by dr. marty Sargent with RUQ pain and nausea -ate ribs tonight -2 hrs after dinner developed R flank and upper abd pain and nausea -no vomiting -no pain meds taken at home -no diarrhea -no cp -denies dysuria and hematuria -pt denies f/c -concern for biliary colic vs acute cholecystitis -will send labs, RUQ ultrasound -will discuss with surgery pending results 06/11/19 23:59 ivf hydration, nausea control, pain medication 06/12/19 00:20 elevated wbc and ast pending ultrasound 06/12/19 01:35 cholelithiasis without acute cholecystitis pt states feeling better will repeat vitals 06/12/19 01:45 repeat vs improved stable for dc to home and follow up with Dr. Sargent as outpt Heart Score/ECG Review - ECG Intrepretation Comment:: 06/11/19 23:59 sinus at 94, nl axis, nl interval, no acute st/t wave findings
[2019-06-12 00:01] LABS: ACTIVATED PTT 33.9 SECONDS (25.2-36.5)
[2019-06-12 00:09] LABS: BILIRUBIN,TOTAL 0.4 mg/dL (0.2-1); BLOOD UREA NITROGEN 16.5 mg/dL (7-18); CALCIUM 9.6 mg/dL (8.5-10.1); CREATININE 0.9 mg/dL (0.55-1.3); POTASSIUM 4.1 mmol/L (3.5-5.1); TOT PROT 7.6 g/dl (6.4-8.2)
[2019-06-12 00:11] LABS: LIPASE 212 U/L (73-393); MAGNESIUM 2.1 mg/dL (1.8-2.4)
[2019-06-12 01:47] VITALS: BP 146/94; PULSE 75; TEMP 98.1
[2019-06-12 01:54] LABS: EPI CELLS 0.9 /HPF (0-5/HPF); HYALINE CASTS 0 /lpf (0-8); PH,URINE 8.5 (5.0-8.0); URINE APPEARANCE CLOUDY; URINE BACTERIA 54.9 /hpf (NEGATIVE); URINE BILIRUBIN NEGATIVE (NEGATIVE); URINE COLOR YELLOW; URINE GLUCOSE (UA) NEGATIVE (NEGATIVE); URINE KETONE NEGATIVE (NEGATIVE); URINE LEUK ESTERASE NEGATIVE (NEGATIVE); URINE NITRITE NEGATIVE (NEGATIVE); URINE PROTEIN TRACE (NEGATIVE); URINE UROBILINOGEN 0.2 mg/dL (0.2-1.0); URINE WBC 0 /hpf (0-5)
--- NOTE | 2019-06-12 14:00 | EKG ---
Test Reason : Blood Pressure : / mmHG Vent. Rate : 094 BPM Atrial Rate : 094 BPM P-R Int : 146 ms QRS Dur : 088 ms QT Int : 356 ms P-R-T Axes : 018 013 037 degrees QTc Int : 445 ms NORMAL SINUS RHYTHM POOR R WAVE PROGRESSION Confirmed by ANAYELI SHEEHAN MD ([id number]) on 06/12/2019 1:59:48 PM Referred By: Confirmed By:ANAYELI SHEEHAN MD
== END 2019-06-12 02:25 | disposition home or self-care (01) ==
LOC: JER 22:42
PROC: 3E033NZ Introduction of Analgesics, Hypnotics, Sedatives into Peripheral Vein, Percutaneous Approach (ICD-10-PCS; principal; 2019-06-11)
PROC: 3E0337Z Introduction of Electrolytic and Water Balance Substance into Peripheral Vein, Percutaneous Approach (ICD-10-PCS; 2019-06-11)
DX: K80.20 Calculus of gallbladder without cholecystitis without obstruction (principal); K76.0 Fatty (change of) liver, not elsewhere classified
CPT/HCPCS: 36415; 76705-TC; 80053; 81003; 83690; 83735; 84484; 84703; 85025; 85610; 85730; 86850; 86900; 86901; 87086; 93005; 93010; 99283-25; J0131; J7030

== ENCOUNTER 2019-07-22 04:43 | Day surgery (SDC) | payer OTHER ==
[2019-07-02 08:15] VITALS: BMI 38.6
--- NOTE | 2019-07-02 09:19 | HP ---
DATE OF SURGERY: 07/22/2019 ADMISSION: Symptomatic cholelithiasis, biliary colic. BRIEF HISTORY: This is a 30-year-old female who was fine up until the weekend of Father's Day this year when she developed a sharp pain at 1 in the morning in the epigastrium, right back and right upper quadrant. This progressively worsened until around 4 in the morning and by 6 in the morning it had resolved. She has had no nausea or vomiting since. She was evaluated and told to stay on a low-fat diet. She underwent an ultrasound of the abdomen and pelvis that demonstrated cholelithiasis without evidence of acute cholecystitis. The ultrasound was performed on March 15, 2019 at [facility]. She denies fever, chills or sweats during that event. She denies a change in the stool color and urine color. PAST MEDICAL HISTORY: No coronary artery disease, hypertension, or diabetes. PAST SURGICAL HISTORY: Patient had a finding in the right lower lobe of the lung and subsequently underwent a portion of lung resection done open. ALLERGIES: CALAMARI. MEDICATIONS: None. SOCIAL HISTORY: She does not smoke, nor drink. No history of drug use. 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 PHYSICAL EXAMINATION: HEENT: There was no icterus. Abdomen: The abdomen was slightly obese, soft, nontender, nondistended. No CVA tenderness. IMPRESSION/PLAN: Symptomatic cholelithiasis, biliary colic. This is a 30-year- old female who on Father's Day developed a bout of biliary colic. At this point the ultrasound demonstrated cholelithiasis without other findings. I would recommend proceeding with a laparoscopic cholecystectomy since she is symptomatic. We have discussed the various surgical approaches. Patient will be scheduled for a laparoscopic cholecystectomy, possible open. The indications, alternatives and complications of the procedure were discussed, questions answered. Will plan to obtain written consent the day of surgery. Elmira PATE [id number] cc: Elmira WISEMAN M.D. MTDD
[2019-07-22] MEDS ORDERED: ERTAPENEM SODIUM 1 GM VIAL ONE (10:41)
[2019-07-22] MEDS ORDERED: MIDAZOLAM HCL 2 MG/2 ML SINGLE DOSE VIAL ONE (12:11)
[2019-07-22] MEDS ORDERED: ROCURONIUM BROMIDE 50 MG/5 ML SYRINGE ONE (12:11)
[2019-07-22] MEDS ORDERED: KETOROLAC TROMETHAMINE 30 MG/1 ML VIAL ONE (12:12)
[2019-07-22] MEDS ORDERED: SODIUM CHLORIDE 0.9% P/F 10 ML VIAL IJ ONE (12:12)
[2019-07-22] MEDS ORDERED: ceFAZolin SODIUM 1 GM VIAL ONE (12:12)
[2019-07-22] MEDS ORDERED: DEXAMETHASONE SOD PHOSPHATE 4 MG/1 ML VIAL ONE (12:12)
[2019-07-22] MEDS ORDERED: ONDANSETRON 4 MG/2 ML VIAL ONE (12:12)
[2019-07-22] MEDS ORDERED: LIDOCAINE HCL/PF 2% SDV 5ML VIAL ONE (12:12)
[2019-07-22] MEDS ORDERED: GLYCOPYRROLATE 0.2 MG/1 ML VIAL ONE (12:18)
[2019-07-22] MEDS ORDERED: ceFAZolin SODIUM 1 GM VIAL IVPB ONE (12:50)
[2019-07-22] MEDS ORDERED: NEOSTIGMINE METHYLSULFATE 0.5 MG/1 ML - 10 ML MDV ONE (13:21)
[2019-07-22] MEDS ORDERED: ACETAMINOPHEN INJECTION 100 ML IVPB ONE (13:52)
[2019-07-22] MEDS ORDERED: ACETAMINOPHEN 325 MG TABLET (FP) PO PRN ×2 (13:55→21:00)
[2019-07-22] MEDS ORDERED: morphine CARPU-JECT 2 MG/1 ML DISP.SYRIN IM PRN (13:55)
[2019-07-22] MEDS ORDERED: ONDANSETRON 4 MG/2 ML VIAL IVPUSH PRN ×2 (13:55→13:57)
[2019-07-22] MEDS ORDERED: oxyCODONE HCL 5 MG TABLET PO PRN (13:57)
[2019-07-22] MEDS ORDERED: ACETAMINOPHEN 1000 MG/100 ML VIAL (NON FORMULARY) IVPB ONE (13:58)
[2019-07-22] MEDS ORDERED: KETOROLAC TROMETHAMINE 30 MG/1 ML VIAL IVPUSH ONE (13:59)
[2019-07-22] MEDS ORDERED: DOCUSATE SODIUM 100 MG CAPSULE (FP) PO PRN (14:04)
--- NOTE | 2019-07-22 14:11 | OP ---
Operative Note - Note: Operative Date: 07/22/19 Pre-Operative Diagnosis: Calculus of Gallbladder, chronic cholecystitis Operation: Laparoscopic cholecystectomy Findings: as dictated Post-Operative Diagnosis: Same as Pre-op Surgeon: Randall Sargent Automobile Rental Representative: Claudia Kemp Anesthesiologist/FLIGHT TOWER DISPATCHER: Christo Copeland Anesthesia: General Specimens Removed: Galbladder Estimated Blood Loss (mls): 5 (ml) Fluid Volume Replaced (mls): 1 (L LR) Operative Report Dictated: Yes
--- NOTE | 2019-07-22 14:12 | SURG ---
Surgery Gauge And Weigh Machine Adjuster Note Gauge And Weigh Machine Adjuster: Claudia Kemp PA-C (Suzy) Date of Service: 07/22/19 Diagnosis: Calculus of Gallbladder, chronic cholecystitis Procedure: Operation: Laparoscopic cholecystectomy I was present for the entirety of the operative procedure. For further detail, please refer to operative report. Visit type - Case Type Case Type: Scheduled - Emergency Emergency Visit: No - New patient This patient is new to me today: Yes Date on this admission: 07/22/19 - Critical Care Critical Care patient: No
[2019-07-22] MEDS ORDERED: SODIUM CHLORIDE 0.9% 500 ML INFUS.BAG IV SCH (14:15)
--- NOTE | 2019-07-22 15:22 | OP ---
DATE OF OPERATION: 07/22/2019 PREOPERATIVE DIAGNOSIS: Symptomatic cholelithiasis, history of biliary colic. POSTOPERATIVE DIAGNOSIS: Symptomatic cholelithiasis, history of biliary colic. PROCEDURE: Laparoscopic cholecystectomy. SURGEON: Randall Sargent MD FILING AND POLISHING SUPERVISOR: Claudia Kemp PA-C ESTIMATED BLOOD LOSS: Minimal. SPECIMEN: Gallbladder. ANESTHESIA: Steve Richmond MD (general). INDICATION FOR PROCEDURE: This is a 39-year-old female with biliary colic and a history of biliary disease. Refer to my H&P for complete details. She is here for laparoscopic cholecystectomy. DESCRIPTION OF PROCEDURE: Patient identified and appropriately positioned on the operating room table. After placement of general anesthesia, the abdomen prepped and draped in the usual sterile fashion with ChloraPrep. An infraumbilical incision was made, deepened through the subcutaneous tissue. The fascia was divided sharply and the peritoneum incised. Under direct vision a Veress needle followed by a structural needle placed. Also under direct vision an 11-mm port placed. The remaining ports placed under direct vision as well, all 5 mm. The gallbladder identified in the right upper quadrant. It was reflected over the dome of the liver in the standard fashion. Going from lateral to medial, the neck and the infundibulum of the gallbladder identified followed by the cystic duct. The cystic duct was circumferentially isolated, clipped and then divided. The cystic artery identified more medially and posteriorly and subsequently clipped and then divided in a similar fashion. The gallbladder itself was removed from the liver bed with electrocautery. Prior to complete removal, the liver bed was irrigated. The operative field noted to be hemostatic. The gallbladder brought through the umbilical port site. The ports were removed. Port sites were hemostatic. The fascia at the umbilical port site reapproximated with interrupted 0 Vicryl suture. All skin closed with 4-0 subcuticular Biosyn followed by Dermabond. At the conclusion of this case, sponge and needle counts were correct. ATTESTATION: Brief operative note handwritten on the preprinted form. [facility] queried prior to giving narcotics. Elmira PATE [id number] cc: Jeff Wilde MD [facility]
[2019-07-22] MEDS: LACTATED RINGERS SOLUTION 1,000 ML IV SCH (16:30)
[2019-07-22] MEDS: oxyCODONE HCL 5 MG TABLET PO PRN (21:55)
[2019-07-23] MEDS: LACTATED RINGERS SOLUTION 1,000 ML IV SCH (06:25)
[2019-07-23] MEDS: oxyCODONE HCL 5 MG TABLET PO PRN (06:59)
[2019-07-23] MEDS ORDERED: ENOXAPARIN NA (PORCINE) 40 MG/0.4 ML DISP.SYRIN SQ ONE (08:00)
--- NOTE | 2019-07-23 08:29 | PN ---
Progress Note (short form) - Note Progress Note: POD #1 Noacute events since surgery per RN notes. Patient is alert. Sitting up eating breakfast. OOB and ambulating without assistance. Voiding spontaneously. denies n/v/f/c, CP, palpitations, SOB or FERREIRA. AVSS. Afebrile. Gen: nad ABD: Obese habitus. All surgical ports c/d/i. No hematoma. LE: soft. supple. nt. Problem List - Problems (1) Gallbladder colic Assessment/Plan: POD #1 s/p lap cholecystectomy Cleared for nd home. To f/u w/ Dr. Sargent in 10 days for post-op f/u Code(s): K80.20 - CALCULUS OF GALLBLADDER W/O CHOLECYSTITIS W/O OBSTRUCTION
[2019-07-23 09:35] VITALS: BP 140/81; PULSE 86; TEMP 98.1
--- NOTE | 2019-07-23 12:49 | PN ---
Progress Note (short form) - Note Progress Note: 39F POD #1 for lap althea. No anesthetic complications. Pt. doing well. VSS. Continue management per primary team.
--- NOTE | 2019-07-27 17:33 | PATH ---
Surgical Pathology Report Patient Name: ALYSE THOMAS [facility]. Rec. #: [id number] /Age/Gender: 1980 (Age: 39) / F Account: [id number] Location: AMBULATORY SURG Taken: 07/22/2019 Received: 07/23/2019 Reported: 07/27/2019 Physicians: Randall Sargent Specimen(s) Received GALLBLADDER Clinical History Calculus of gallbladder with chronic cholecystitis Final Diagnosis GALLBLADDER, CHOLECYSTECTOMY: CHRONIC CHOLECYSTITIS, CHOLESTEROLOSIS, AND CHOLELITHIASIS. Electronically Signed Leelee Barrios M.D. Gross Description Received in formalin, labeled "gallbladder," is a 9.0 x 3.2 x 3.1 cm. gallbladder with a 0.2 cm. in length portion of cystic duct attached. The outer surface is wright green and varies from smooth to shaggy. The lumen contains green, tenacious bile as well as abundant yellow, irregular choleliths ranging from 0.1-0.7 cm in greatest dimension. The mucosa is green with gold cholesterol stippling. The wall of the gallbladder averages 0.1 cm. in thickness. Foam Machine Operator sections are submitted in one cassette. /07/23/2019 saudi07/23/2019
== END 2019-07-23 13:03 | disposition home or self-care (01) ==
LOC: JASU-SURG 04:43 → JASUSAT 04:43 → J7W 21:09 → JASUSAT 07-23 13:03
PROVIDERS: ATTEND Surgery
PROC: 0FT44ZZ Resection of Gallbladder, Percutaneous Endoscopic Approach (ICD-10-PCS; principal; 2019-07-22 12:00)
DX: K80.20 Calculus of gallbladder without cholecystitis without obstruction (principal)
CPT/HCPCS: 84703; 88304-TC; 94760; J0131

== ENCOUNTER 2022-04-24 09:04 | Emergency (ER) | payer OTHER ==
[2022-04-24 09:12] VITALS: BP 171/104; PULSE 99; RESP 18; TEMP 98.2; BMI 41.9
[2022-04-24] MEDS ORDERED: ACETAMINOPHEN 500 MG TABLET (FP) PO ONE (10:09)
[2022-04-24] MEDS ORDERED: ACETAMINOPHEN 500 MG TABLET (FP) ONE (10:12)
[2022-04-24] MEDS ORDERED: IBUPROFEN 600 MG TABLET (FP) PO ONE ×2 (12:32→12:34)
[2022-04-24] MEDS ORDERED: METHOCARBAMOL 500 MG TABLET PO ONE (12:32)
[2022-04-24] MEDS ORDERED: METHOCARBAMOL 500 MG TABLET ONE (12:34)
== END 2022-04-24 12:41 | disposition home or self-care (01) ==
LOC: JERFT 09:04
DX: S20.211A Contusion of right front wall of thorax, initial encounter (principal); M25.551 Pain in right hip; M25.531 Pain in right wrist; V49.40XA Driver injured in collision with unspecified motor vehicles in traffic accident, initial encounter
CPT/HCPCS: 70450-TC; 71046-TC-FY; 72125-TC; 73110-TC-RT-FY; 73130-TC-RT-FY; 73502-TC-RT-FY; 99285-25

== ENCOUNTER 2023-08-01 22:32 | Emergency (ER) | payer OTHER ==
[2023-08-01 22:43] VITALS: BMI 41.9
[2023-08-01] MEDS ORDERED: ACETAMINOPHEN 1000 MG/100 ML BAG IVPB ONE (23:42)
[2023-08-02] MEDS ORDERED: ACETAMINOPHEN INJECTION 100 ML IVPB ONE (00:17)
[2023-08-02] MEDS: ALBUTEROL SO4 2.5/IPRATROPIUM 0.5 INH SOL 3 ML VIAL.NEB. NEB SCH ×4 (00:40→01:07)
[2023-08-02 00:54] LABS: BASO % 0.7 % (0-2.0); EOS % 1.7 % (0-4.5); HEMATOCRIT 40.7 % (32.4-45.2); HEMOGLOBIN 13.9 GM/dL (10.7-15.3); LYMPH % 24.7 % (8-40); MCHC 34.2 g/dl (32.0-36.0); MEAN CELL VOLUME 84.8 fl (80-96); MEAN PLT VOLUME 6.7 fl (7.5-11.1); MONO % 5.6 % (3.8-10.2); NEUT % 67.3 % (42.8-82.8); PLATELET COUNT 296 10^3/uL (134-434); RBC 4.79 M/mm3 (3.60-5.2); WHITE BLOOD COUNT 8.7 K/mm3 (4.0-10.0)
[2023-08-02 00:57] LABS: EPI CELLS 9 /uL (0-25.1); HYALINE CASTS 0 /uL (0-3.1); URINE APPEARANCE CLEAR; URINE BACTERIA 180 /uL (0-1359); URINE BILIRUBIN NEGATIVE (NEGATIVE); URINE COLOR YELLOW; URINE GLUCOSE (UA) 1+ (NEGATIVE); URINE KETONE NEGATIVE (NEGATIVE); URINE LEUK ESTERASE NEGATIVE (NEGATIVE); URINE NITRITE NEGATIVE (NEGATIVE); URINE PROTEIN 1+ (NEGATIVE); URINE RBC 38 /uL (0-23.9); URINE UROBILINOGEN 0.2 mg/dL (0.2-1.0); URINE WBC 4 /uL (0-25.8)
[2023-08-02 01:05] LABS: POTASSIUM 4.6 mmol/L (3.5-5.1)
[2023-08-02 01:07] LABS: CALCIUM 8.8 mg/dL (8.5-10.1)
[2023-08-02 01:08] LABS: ALBUMIN 3.5 g/dl (3.4-5.0)
[2023-08-02 01:11] LABS: CREATININE 0.6 mg/dL (0.55-1.3)
[2023-08-02 01:12] LABS: BILIRUBIN,TOTAL 0.3 mg/dL (0.2-1); TOT PROT 7.4 g/dl (6.4-8.2)
[2023-08-02 06:06] VITALS: BP 149/99; PULSE 91; RESP 16; TEMP 98.7
== END 2023-08-02 06:53 | disposition home or self-care (01) ==
LOC: JER 22:32
PROC: 3E033NZ Introduction of Analgesics, Hypnotics, Sedatives into Peripheral Vein, Percutaneous Approach (ICD-10-PCS; principal; 2023-08-01)
PROC: 3E0F7GC Introduction of Other Therapeutic Substance into Respiratory Tract, Via Natural or Artificial Opening (ICD-10-PCS; 2023-08-01)
DX: R05.9 Cough, unspecified (principal); R10.31 Right lower quadrant pain; Z20.822 Contact with and (suspected) exposure to COVID-19
CPT/HCPCS: 0241U-QW; 36415; 71045-TC-FY; 74177-TC; 80053; 81003; 83690; 84703; 85025; 87077; 87086; 93005; 93010; 99285-25

== ENCOUNTER 2023-11-13 20:25 | Emergency (ER) | payer OTHER ==
[2023-11-13 20:33] VITALS: BP 178/113; PULSE 96; RESP 20; TEMP 98.6; BMI 42.7
[2023-11-13] MEDS ORDERED: LIDOCAINE 4% PATCH TP ONE (21:33)
[2023-11-13] MEDS ORDERED: ACETAMINOPHEN 325 MG TABLET (FP) ONE (21:33)
[2023-11-13] MEDS: LIDOCAINE 5% TOPICAL PATCH TP ONE (21:45)
[2023-11-13] MEDS: ACETAMINOPHEN 500 MG TABLET (FP) PO ONE (21:45)
[2023-11-13] MEDS: LIDOCAINE PATCH REMOVAL MC SCH (23:39)
[2023-11-14] MEDS ORDERED: KETOROLAC TROMETHAMINE 15 MG/ML VIAL ONE (00:42)
[2023-11-14] MEDS: KETOROLAC TROMETHAMINE 15 MG/ML VIAL IVPUSH ONE (01:05)
[2023-11-14] MEDS ORDERED: KETOROLAC TROMETHAMINE 30 MG/1 ML VIAL ONE (01:06)
[2023-11-14] MEDS: KETOROLAC TROMETHAMINE 30 MG/1 ML VIAL IM ONE (01:09)
== END 2023-11-14 01:34 | disposition home or self-care (01) ==
LOC: JER 20:25
PROC: 3E0233Z Introduction of Anti-inflammatory into Muscle, Percutaneous Approach (ICD-10-PCS; principal; 2023-11-14)
DX: S20.221A Contusion of right back wall of thorax, initial encounter (principal); M25.511 Pain in right shoulder; M54.6 Pain in thoracic spine; R51.9 Headache, unspecified; W00.0XXA Fall on same level due to ice and snow, initial encounter
CPT/HCPCS: 71046-TC-FY; 71250-TC; 73010-TC-FY; 73030-TC-RT-FY; 73060-TC-RT-FY; 99284-25